=== PATIENT | female | born 1995 | race Caucasian/White ===

== ENCOUNTER 2023-03-26 17:37 | Emergency (ER) | payer MEDICAID, SELFPAY ==
[2023-03-26 17:46] VITALS: BP 152/105; PULSE 113; RESP 18; TEMP 36.7; O2SAT 99
--- NOTE | 2023-03-26 17:56 | ED.ANIMALBIT ---
HPI - Animal Bite General Chief Complaint: Animal Bite Stated Complaint: Cat bite L hand Time Seen by Provider: 03/26/23 17:41 History of Present Illness HPI narrative: This 28-year-old female comes in with a cat bite to her left hand that occurred yesterday. She states that the cat is up-to-date on vaccinations as is the case also for her personally. She has some swelling on the dorsal aspect of her left hand and a small puncture wound in the center aspect of the left hand dorsally. She does not report any fevers. Related Data Previous Rx's Medication Instructions Recorded amoxicillin 875 mg-potassium 1 tab PO BID #14 tabs 03/26/23 clavulanate 125 mg tablet Allergies Allergy/AdvReac Type Severity Reaction Status Date / Time No Known Drug Allergies Allergy Verified 03/26/23 17:45 Review of Systems Status of ROS: Reports: 10 or more systems reviewed and unremarkable except as noted in History and below Narrative: Constitutional: No fevers, no weight gain or loss. Eyes: No discharge. No vision changes. HENT: No congestion, no sore throat, no ear pain. Cardiovascular: No chest pain, no palpitations. Respiratory: No shortness of breath, no wheezes, no cough. Gastrointestinal: No abdominal pain, no vomiting, no diarrhea. Genitourinary: No dysuria, no hematuria. Musculoskeletal: Normal range of motion. Skin: No rashes, no pruritis. Erythema surrounding a puncture wound on the dorsal aspect of the left hand. Neurological: No dizziness, weakness, sensory change, speech change. Endo/Heme/Allergies: No bruising or bleeding. No polydipsia. Pysch: no suicidality, no anxiety, no insomnia. All other systems reviewed and are negative. PFSH PFS Social History Smoking Status: Current every day smoker How often do you have a drink containing alcohol: 2-4 times a month How many standard drinks containing alcohol do you have on a typical day: 1 or 2 How often do you have six or more drinks on one occasion: Weekly AUDIT-C Alcohol total score: 5 Non-prescribed substance use: marijuana (any form) service: No Exam Narrative: Exam Narrative: Constitutional: Well-developed, well-nourished, no acute distress. HEENT: Normocephalic, atraumatic. Neck: Normal range of motion. Nontender. Supple. Heart: Intact distal pulses. Lungs: No chest discomfort. No wheezes, rhonchi, or rales. Abdomen: Nontender. Back: Normal range of motion. Extremities: Normal range of motion. A single puncture wound is noted on the dorsal aspect of left hand. There is surrounding erythema extending to the MP joints and proximally to the wrist. There is some mild swelling also in this area. Skin: Intact. No rash. Warm. No erythema or pallor. Neurologic: No altered sensation. No weakness. Alert and oriented. Psychiatric: No suicidality. No anxiety or depression. No insomnia. Nursing notes and vitals signs are reviewed. Const: Vital Signs, click to edit/add: Vital Signs - 24 hr 03/26/23 17:46 Temperature 98.0 F Pulse Rate [Right Pulse Oximeter] 113 H Respiratory Rate 18 Blood Pressure [Ri ght Upper Arm] 152/105 H Pulse Oximetry 99 Oxygen Delivery Me thod Room Air Course Vital Signs Vital signs: Initial Vital Signs Temperature 98.0 F 03/26/23 17:46 Temperature Source Temporal Artery Scan 03/26/23 17:46 Pulse Rate 113 H 03/26/23 17:46 Respiratory Rate 18 03/26/23 17:46 Blood Pressure 152/105 H 03/26/23 17:46 Blood Pressure Mean 120 H 03/26/23 17:46 Blood Pressure Position Sitting 03/26/23 17:46 Pulse Oximetry 99 03/26/23 17:46 Oxygen Delivery Method Room Air 03/26/23 17:46 Vital Signs Temperature 98.0 F 03/26/23 17:46 Pulse Rate 113 H 03/26/23 17:46 Respiratory Rate 18 03/26/23 17:46 Blood Pressure 152/105 H 03/26/23 17:46 Pulse Oximetry 99 03/26/23 17:46 Oxygen Delivery Method Room Air 03/26/23 17:46 Temperature 98.0 F 03/26/23 17:46 Pulse Rate 113 H 03/26/23 17:46 Respiratory Rate 18 03/26/23 17:46 Blood Pressure 152/105 H 03/26/23 17:46 Pulse Oximetry 99 03/26/23 17:46 Oxygen Delivery Method Room Air 03/26/23 17:46 MDM - Animal Bite MDM Narrative Medical decision making narrative: This patient comes in reporting a cat bite injury to her left hand. These have high risk for an infection and she is showing signs of such. She received a prescription for Augmentin. I did describe signs and symptoms that would indicate a need for return and re-evaluation if not improving or worsening. Discharge Plan Discharge Clinical Impression: Cat bite Patient Disposition: Home, Self-Care Condition: Stable Additional Instructions: Take Augmentin as prescribed. Use [id number] medicines also as needed and directed. Follow up with MD or return if worsening. Prescriptions: New amoxicillin-pot clavulanate 875-125 mg tablet 1 tab PO BID Qty: 14 0RF Stand Alone Forms: [employer] Info Instructions
== END 2023-03-26 18:15 | disposition home or self-care (01) ==
LOC: ED 18:11
PROVIDERS: Emergency Provider Emergency Medicine Emergency Medical Services
DX: S61.452A Open bite of left hand, initial encounter (principal); W55.01XA Bitten by cat, initial encounter
CPT/HCPCS: 99283; 99284

== ENCOUNTER 2024-05-27 19:46 | Emergency (ER) | payer SELFPAY ==
[2024-05-27 20:07] VITALS: BP 110/76; PULSE 88; RESP 20; TEMP 36.8; O2SAT 99; BMI 219.9
[2024-05-27 20:33] LABS: Appearance Urine Clear (Clear); Bilirubin Urine Negative (Negative); Blood Urine Negative (Negative); Color Urine Yellow (Yellow); Glucose Urine Negative (Negative); Ketones Urine 2+ (Negative); Leukocyte Esterase Urine Trace (Negative); Nitrite Urine Negative (Negative); Protein Urine 1+ (Negative); Specific Gravity Urine 1.015 (1.000-1.030); Urobilinogen Urine 0.2 (0.2-1.0)
[2024-05-27 20:41] LABS: Ur HCG Qualitative* Negative (Negative)
[2024-05-27 20:50] LABS: Bacteria Urine Few; RBC Urine 0-2 (0-2); Trichomonas Urine Few
--- NOTE | 2024-05-27 21:44 | ED.BACK ---
HPI - Back Pain/Injury General Date Seen: 05/27/24 Chief Complaint: Back Injury/Pain Stated Complaint: back pain Time Seen by Provider: 05/27/24 20:47 Source: patient and RN notes reviewed Mode of arrival: ambulatory Limitations: no limitations History of Present Illness HPI Narrative: Patient is a very nice 29-year-old female presents here with back pain, and just feeling unwell for the last couple days, she has had no fevers or chills she has had no nausea vomiting, with this she has had her back pain was terrible yesterday but better today after she took some ibuprofen she does not have any numbness tingling or weakness associated with this, maybe a little bit of discharge, although she tells me it is not purulent, just a little bit more than normal. She has a little bit of frequency of urination but no dysuria associated with this. No history of immunosuppression, presents here with her significant other. Associated symptoms: increased urinary urgency and increased urinary frequency Work related injury: No Related Data Home Medications ?Medication ?Instructions ?Recorded ?Confirmed No Known Home Medications 05/27/24 05/27/24 Allergies Allergy/AdvReac Type Severity Reaction Status Date / Time No Known Drug Allergies Allergy Verified 05/27/24 20:09 Review of Systems Status of ROS: Reports: 10 or more systems reviewed and unremarkable except as noted in History and below [facility] Social History Smoking Status: Current every day smoker How often do you have a drink containing alcohol: 2-4 times a month How many standard drinks containing alcohol do you have on a typical day: 1 or 2 How often do you have six or more drinks on one occasion: Weekly AUDIT-C Alcohol total score: 5 Non-prescribed substance use: marijuana (any form) service: No Exam Narrative: Exam Narrative: On examination she is in no apparent distress she is pleasant alert she is able to follow my commands normally pupils equal round reactive to light there is no scleral icterus redness her TMs are normal oropharynx is normal her neck is supple full range of motion is elicited, her chest is clear bilaterally there is no CVA tenderness on examination or back she is able to bend over basically touch her toes her extension lateral flexion rotation are all normal her abdominal exam reveals no tenderness to palpation no masses no organomegaly bowel sounds are normal. Const: Vital Signs, click to edit/add: Vital Signs - 24 hr 05/27/24 20:07 Temperature 98.2 F Pulse Rate [Right Pulse Oximeter] 88 Respiratory Rate 20 Blood Pressure [Ri ght Upper Arm] 110/76 Pulse Oximetry 99 Oxygen Delivery Me thod Room Air Documenting provider has reviewed patient's vital signs: yes Course Course ED Course: They should I told her that her urinalysis was negative, I thought this was more just back spasm, given her history although that I would did go back and review her UA which showed 10-25 white blood cells I do think this is probably UTI early pyelo. Given her nontoxic nature, I would like her to use the ibuprofen and also Keflex which will cover for the most common which is E coli. 500 mg 4 times a day for the next 7 days is prescribed there through [facility] we went over signs symptoms of worsening, when she should re-presented, and she was comfortable with this left ambulatory from the emergency room Vital Signs Vital signs: Initial Vital Signs Temperature 98.2 F 05/27/24 20:07 Temperature Source Temporal Artery Scan 05/27/24 20:07 Pulse Rate 88 05/27/24 20:07 Respiratory Rate 20 05/27/24 20:07 Blood Pressure 110/76 05/27/24 20:07 Blood Pressure Mean 87 05/27/24 20:07 Blood Pressure Position Sitting 05/27/24 20:07 Pulse Oximetry 99 05/27/24 20:07 Oxygen Delivery Method Room Air 05/27/24 20:07 Vital Signs Temperature 98.2 F 05/27/24 20:07 Pulse Rate 88 05/27/24 20:07 Respiratory Rate 20 05/27/24 20:07 Blood Pressure 110/76 05/27/24 20:07 Pulse Oximetry 99 05/27/24 20:07 Oxygen Delivery Method Room Air 05/27/24 20:07 Temperature 98.2 F 05/27/24 20:07 Pulse Rate 88 05/27/24 20:07 Respiratory Rate 20 05/27/24 20:07 Blood Pressure 110/76 05/27/24 20:07 Pulse Oximetry 99 05/27/24 20:07 Oxygen Delivery Method Room Air 05/27/24 20:07 MDM - Back Pain/Injury MDM Narrative Medical decision making narrative: Life-threatening differential diagnosis considered include: Cauda equina an epidural abscess, other differential diagnosis considered includes sprain, contusion, nerve root entrapment, radiculopathy, muscle spasm, urolithiasis, lumbar fracture, pyelonephritis, appendicitis, biliary colic, as well as other etiologies. The patient denies saddle anesthesia bowel or bladder incontinence or lower extremity weakness, recent weight loss, or history of malignancy. Differential Diagnosis Differential diagnosis: Likely lumbar radiculopathy, sciatica, strain of lumbar region, renal colic, pyelonephritis, thoracic back pain and discitis Medical Records Attestation: I reviewed the patient's medical records. Lab Data Attestation: I reviewed the patient's lab results. Labs: Lab Results 05/27/24 Range/Units 20:29 Urine Color Yellow (Yellow) Urine Appearance Clear (Clear) Urine pH 6.0 (5.0-8.5) Ur Specific [place] 1.015 (1.000-1.030) Urine Protein 1+ A (Negative) Urine Glucose (UA) Negative (Negative) Urine Ketones 2+ A (Negative) Urine Blood Negative (Negative) Urine Nitrite Negative (Negative) Urine Bilirubin Negative (Negative) Urine Urobilinogen 0.2 (0.2-1.0) Ur Leukocyte Esterase Trace A (Negative) Urine RBC 0-2 (0-2) Urine WBC 10-25 A (0-5) Ur Squamous Epith Cells None (None-Few) Urine Bacteria Few A (None) Urine Trichomonas Few A (None) Urine HCG, Qual Negative (Negative) Evidence of UTI is noted. Discharge Plan Discharge Clinical Impression: UTI (urinary tract infection) Patient Disposition: Home w/ Parent or Adult Condition: Stable Instructions: Urinary Tract Infection in Women (DC) Additional Instructions: Home, rest, antibiotics as directed, increasing pain, fevers chills, nausea vomiting then he should come back and this is gone on to become a kidney infection, which we are not seeing here today. Ibuprofen 800 mg 3 times a day is also helpful. Activity Level: Light activity Prescriptions: No Action No Known Home Medications Follow Up/Referrals: Provider,Not a Local [Primary Care Provider] - Stand Alone Forms: [employer] Info Instructions
== END 2024-05-27 21:24 | disposition home or self-care (01) ==
LOC: ED 21:19
PROVIDERS: Emergency Provider Family Medicine
DX: N39.0 Urinary tract infection, site not specified (principal)
CPT/HCPCS: 81001; 81025; 87086; 87631; 99282; 99283; 99284

== ENCOUNTER 2024-06-03 05:01 | Emergency (ER) | payer SELFPAY ==
[2024-06-03 05:05] VITALS: BP 144/91; PULSE 87; RESP 18; TEMP 36.3; O2SAT 100; BMI 21.9
--- NOTE | 2024-06-03 05:28 | ED_ITS ---
HPI - General Adult General Date Seen: 06/03/24 Chief complaint: Back Injury/Pain Stated complaint: back pain Time Seen by Provider: 06/03/24 05:28 History of Present Illness HPI narrative: 29-year-old female presents to the ER today with back pain. History is limited by patient's stress and pain Per medical record she was seen 1 week ago on 05/27 in the ER by Dr. Rdz for back pain and feeling unwell. She has had some urinary frequency but no dysuria. Urine culture grew mixed charlie. She was given [facility] prescription for cephalexin 500 mg t.i.d. for 7 days. Apparently came in 2 bottles and she has been taking it this week, but still has 1 bottle left. It sounds like she may have missed a couple of doses of she still has a bottle of pills left, but it is unclear if she has been taking the cephalexin exactly as prescribed. She notes that her UTI symptoms have gotten better this week but she still has ongoing back pain. Her back pain affects her entire low back including both flanks from the ribs all the way down to the top of her pelvis. It does not radiate to the front. Has been getting worse for the past couple of days. She had gotten a prescription or had received instruction from her last ER doctor to take ibuprofen 800 mg for her back pain but she did not have any 100 mg tablet so has not been taking any ibuprofen. Her back pain has gotten worse the past couple of days. Tonight it is even worse. She can not sleep. She now says she is starting to ?freak out? because her back is hurting so much in she is tired of it hurting so she came back to the ER. She is not vomiting but she has been nauseous. Urination has been back to normal. She started getting her menstrual cycle a couple of days ago. When she was here last week she had mentioned that she had not gotten so she had a test (that was negative). She has a past medical history of a previous kidney stone and a previous ectopic surgery 9 years ago Related Data Previous Rx's ?Medication ?Instructions ?Recorded hydrocodone 5 mg-acetaminophen 325 1 - 2 tab PO Q6H PRN pain #10 tabs 06/03/24 mg tablet ibuprofen 800 mg tablet 800 mg PO Q8H PRN pain #10 tabs 06/03/24 Allergies Allergy/AdvReac Type Severity Reaction Status Date / Time No Known Drug Allergies Allergy Verified 05/27/24 20:09 [facility] Social History Smoking Status: Current every day smoker How often do you have a drink containing alcohol: 2-4 times a month How many standard drinks containing alcohol do you have on a typical day: 1 or 2 How often do you have six or more drinks on one occasion: Weekly AUDIT-C Alcohol total score: 5 Non-prescribed substance use: marijuana (any form) service: No Exam Narrative: Exam Narrative: Constitutional: Appears well-developed and well-nourished. Boyfriend attentively at her side. Patient is shaking and shivering due to pain/anxiety. She is tremulous and groaning. HENT: Head: Atraumatic. Nose: Nose normal. Mouth/Throat: Oral mucosa is clear and moist. no trismus. Pharynx normal Eyes: Conjunctivae normal. EOM normal. Pupils equal, round, and reactive to light. No scleral icterus. Neck: Normal range of motion. Neck supple. No tracheal deviation present. Cardiovascular: Normal rate, regular rhythm. No gallop. No friction rub. No murmur heard. Symmetric radial artery pulses Pulmonary/Chest: Effort normal. No stridor. No respiratory distress. No wheezes. No rales. No rhonchi . No tenderness. Abdominal: Soft. Bowel sounds normal. No distension. No mass. No tenderness. No rebound. No guarding. Musculoskeletal: Complains of diffuse lower back pain. She is tender over both flanks and in the midline. No step-off. No bruising. No rash. RUE: Normal range of motion. No tenderness. No deformity LUE: Normal range of motion. No tenderness. No deformity RLE: Normal range of motion. No edema. No tenderness. No deformity LLE: Normal range of motion. No edema. No tenderness. No deformity Neurological: Alert and oriented to person, place, and time. Normal strength. CN II-VII intact. No sensory deficit. GCS eye subscore is 4. GCS verbal subscore is 5. GCS motor subscore is 6. Normal coordination Skin: Skin is warm and dry. No rash noted. No pallor. Normal capillary refill. Psychiatric: Limited by pain and discomfort. Anxious due to her pain and distress. Const: Vital Signs, click to edit/add: Vital Signs - 24 hr 06/03/24 05:05 06/03/24 06:24 Temperature 97.3 F L Pulse Rate 68 Pulse Rate [Right Pulse Oximeter] 87 Respiratory Rate 18 Blood Pressure [Ri ght Upper Arm] 144/91 H Pulse Oximetry 100 100 Oxygen Delivery Me thod Room Air Course Course ED Course: Recheck-still having some pain but much improved after Dilaudid and Toradol. Able to rest more comfortably. Reevaluation(s) Reevaluation #1: Recheck-discussed lab and CT results with the patient and her boyfriend. They were comfortable discharging home with oral pain meds. Vital Signs Vital signs: Initial Vital Signs Temperature 97.3 F L 06/03/24 05:05 Temperature Source Temporal Artery Scan 06/03/24 05:05 Pulse Rate 87 06/03/24 05:05 Pulse Rhythm Regular 06/03/24 05:05 Respiratory Rate 18 06/03/24 05:05 Blood Pressure 144/91 H 06/03/24 05:05 Blood Pressure Mean 108 H 06/03/24 05:05 Blood Pressure Position Sitting 06/03/24 05:05 Pulse Oximetry 100 06/03/24 05:05 Oxygen Delivery Method Room Air 06/03/24 05:05 Vital Signs Temperature 97.3 F L 06/03/24 05:05 Pulse Rate 87 06/03/24 05:05 Respiratory Rate 18 06/03/24 05:05 Blood Pressure 144/91 H 06/03/24 05:05 Pulse Oximetry 100 06/03/24 05:05 Oxygen Delivery Method Room Air 06/03/24 05:05 Temperature 97.3 F L 06/03/24 05:05 Pulse Rate 68 06/03/24 06:24 Respiratory Rate 18 06/03/24 05:05 Blood Pressure 144/91 H 06/03/24 05:05 Pulse Oximetry 100 06/03/24 06:24 Oxygen Delivery Method Room Air 06/03/24 05:05 Medications Administered Medications: Discontinued Medications Generic Name Dose Route Start Last Admin Trade Name Freq PRN Reason Stop Dose Admin Hydromorphone HCl 0.5 mg 06/03/24 05:47 06/03/24 06:04 Hydromorphone 0.5 Mg/0.5 Ml Inj IVP 0.5 mg Q1H PRN Administration Pain Ketorolac Tromethamine 15 mg 06/03/24 05:47 06/03/24 06:04 Ketorolac 15 Mg/Ml Inj IVP 06/03/24 05:48 15 mg ONCE ONE Administration Ondansetron HCl 4 mg 06/03/24 05:47 06/03/24 06:04 Ondansetron 2 Mg/Ml Inj IVP 06/03/24 05:48 4 mg ONCE ONE Administration Medical Decision Making MDM Narrative Medical decision making narrative: Presented to the Emergency Department with low back pain affecting most of her low back including both of her flanks. She was here about 1 week ago with some urinary symptoms and is currently on cephalexin for UTI. First concern is for possible evolving pyelonephritis however without unilateral flank pain, that seems less likely. Repeat urinalysis today shows resolution of previous pyuria and no evidence for any ongoing infection or pyelonephritis. I did addictions counselor assistant the patient to complete her course of cephalexin. Differential would also include kidney stones. Urinalysis negative for hematuria. Stone protocol CT is negative for any kidney stone or hydronephrosis. Although she is not having any anterior abdominal pain, differential for her back pain but also include pancreatitis, cholecystitis, Appendicitis, Bowel Obstruction, Ulcer, Ischemia, Cholecystitis, Diverticulitis, Pancreatitis, UTI, kidney stone, Enteritis/Colitis, amongst many other etiologies. Laboratory testing does not reveal a cause for the patient's pain. Imaging is noted to be normal, save for a 3.5 cm cyst in her left adnexa which is probably a benign ovarian cyst. She is not having any pelvic pain or any symptoms lateralizing to left size to raise concern for torsion or TOA at this time. The exact etiology of the abdominal pain is not clear at this time. No life threatening cause or need for emergent surgery or hospital admission is detected today. The patient was advised that if symptoms do not completely resolve within another 12-24 hours re-evaluation with primary care or return to the ED is indicated. The patient also understands that if they worsen, they should return to the ER right away. I discussed the uncertainty about the diagnosis and answered the patient's questions. return precautions discussed. Prescriptions for [place] and ibuprofen. Opiate and sedation precautions reviewed. She will return for recheck in 24 hours of not improving, sooner if worse. Lab Data Labs: Lab Results 06/03/24 Range/Units 05:49 WBC 7.24 (4.50-11.00) K/uL RBC 4.18 (4.00-5.20) m/uL Hgb 13.3 (12.0-16.0) gm/dL Hct 40.2 (33.0-51.0) % MCV 96 (80-100) fL MCH 32 (26-34) pg MCHC 33 (32-36) gm/dL RDW Coeff of [place] 12.6 (11.5-15.5) % Plt Count 489 H (140-440) K/uL Neut % (Auto) 48.7 (42.0-72.0) % Lymph % (Auto) 38.1 (20-44) % [place] % (Auto) 10.4 (0.0-11.0) % Eos % (Auto) 1.8 (0.0-7.0) % Baso % (Auto) 0.3 (0.0-3.0) % Neut # (Auto) 3.53 (1.7-7.0) K/uL Lymph # (Auto) 2.76 (0.90-2.90) K/uL [place] # (Auto) 0.80 (0.00-0.90) K/UL Eos # (Auto) 0.13 (0.00-0.50) K/uL Baso # (Auto) 0.02 (0.00-0.30) K/uL Abs Immat Gran (auto) 0.05 (0.00-0.30) K/uL Imm/Tot Granulo (auto) 0.7 % Diff Slide Review Acceptable Review (Acceptable) Sodium 135 (135-149) mmol/L Potassium 3.4 L (3.6-5.1) mmol/L Chloride 99 (96-114) mmol/L Carbon Dioxide 27 (20-32) mmol/L Anion Gap 9 (7-15) mEq/L BUN 9 (5-24) mg/dL Creatinine 0.7 (0.5-1.5) mg/dL Estimated Creat Clear 113.24 Estimated GFR 119 ml/min Glucose 107 (60-115) mg/dL Calcium 9.2 (8.4-10.6) mg/dL Total Bilirubin 0.4 (0.1-1.5) mg/dL AST 42 H (12-35) U/L ALT 56 H (4-35) U/L Alkaline Phosphatase 100 (40-150) U/L Total Protein 7.4 (6.0-8.3) g/dL Albumin 4.0 (3.3-5.0) g/dL Lipase 55 (23-300) U/L HCG, Qual Negative (Negative) Urine Color Yellow (Yellow) Urine Appearance Clear (Clear) Urine pH 7.0 (5.0-8.5) Ur Specific [place] 1.010 (1.000-1.030) Urine Protein Negative (Negative) Urine Glucose (UA) Negative (Negative) Urine Ketones Negative (Negative) Urine Blood 3+ A (Negative) Urine Nitrite Negative (Negative) Urine Bilirubin Negative (Negative) Urine Urobilinogen 0.2 (0.2-1.0) Ur Leukocyte Esterase 1+ A (Negative) Urine RBC 0-2 (0-2) Urine WBC 2-5 (0-5) Ur Squamous Epith Cells Moderate A (None-Few) Urine Bacteria Few A (None) Imaging Data CT scan - abdomen: Attestation: I have reviewed the pertinent imaging results. Radiologist's impression: IMPRESSION: 1. Negative for hydronephrosis or nephrolithiasis. 2. Left adnexal cyst measuring up to 3.5 cm. Trace free fluid within the pelvis. Discharge Plan Discharge Clinical Impression: Low back pain, Ovarian cyst Instructions: Acute Low Back Pain (ED) Additional Instructions: As we discussed, the cause for your back pain is not clear at this time. We do not see any sign of a kidney stone or kidney infection. Your other laboratory work is reassuring. Your CT scan does show a cyst (a bubble of fluid) on her left ovary. I suspect that the cyst is probably not causing your back pain. Would like you to see your doctor within 1-2 months to have a pelvic ultrasound to recheck that left ovarian cyst and make sure it resolves. To manage her back pain, you can use ibuprofen 800 mg 3 times daily as needed. You can also use [place] every 6 hours as needed. Be careful with [place] because it can cause dizziness, drowsiness, constipation. [place], like all opiate pain killers, can be addictive. Please return to the ER or see your doctor if her back pain is not improving within 24 hours. As we discussed, if you get worse or have other concerning symptoms, please come back to the ER right away. Prescriptions: New hydrocodone-acetaminophen 5-325 mg tablet 1 - 2 tab PO Q6H PRN (Reason: pain) Qty: 10 0RF ibuprofen 800 mg tablet 800 mg PO Q8H PRN (Reason: pain) Qty: 10 0RF Follow Up/Referrals: Provider,Not a Local [Primary Care Provider] - Stand Alone Forms: [employer] Info Instructions
--- NOTE | 2024-06-03 05:47 | CRLHL7_ITS ---
For Patients: As a result of the Century Cures Act, medical imaging exams and procedure reports are released immediately into your electronic medical record. You may view this report before your referring provider. If you have questions, please contact your health care provider. INDICATION: Bilateral flank pain TECHNIQUE: CT abdomen and pelvis without contrast. COMPARISON: None. FINDINGS: The visualized portions of the lung bases are clear. Evaluation of the abdominal viscera is limited due to lack of IV contrast, however the liver, spleen, pancreas and adrenal glands are unremarkable. The gallbladder is nondistended. The kidneys are negative for hydronephrosis or nephrolithiasis. The bladder is distended and unremarkable. There is a 2.6 x 3.5 cm cyst in the left adnexa. Trace free fluid within the pelvis. There are no dilated loops of small bowel to suggest obstruction. The appendix is at the upper limits of normal in distension without wall thickening. No significant surrounding inflammatory change. There is no intraperitoneal free air or fluid. The visualized osseous structures are unremarkable. IMPRESSION: 1. Negative for hydronephrosis or nephrolithiasis. 2. Left adnexal cyst measuring up to 3.5 cm. Trace free fluid within the pelvis. Dictated by Radha Caal MD @ 06/03/2024 7:11:18 AM Please note that all CT scans at this facility use dose modulation, iterative reconstruction, and/or weight-based dosing when appropriate to reduce radiation dose to as low as reasonably achievable. Dictated by: Radha Caal MD @ 06/03/2024 07:13:48 (Electronically Signed)
[2024-06-03 05:59] LABS: Basophils Absolute Auto 0.02 K/uL (0.00-0.30); Basophils Percent Auto 0.3 % (0.0-3.0); Eosinophils Absolute Auto 0.13 K/uL (0.00-0.50); Eosinophils Percent Auto 1.8 % (0.0-7.0); Hematocrit 40.2 % (33.0-51.0); Hemoglobin* 13.3 gm/dL (12.0-16.0); Immature Granulocytes Abs Auto 0.05 K/uL (0.00-0.30); Immature Granulocytes Pct Auto 0.7 %; Lymphocytes Absolute Auto 2.76 K/uL (0.90-2.90); Lymphocytes Percent Auto 38.1 % (20-44); Mean Corpuscular HGB Conc 33 gm/dL (32-36); Mean Corpuscular Hemoglobin 32 pg (26-34); Mean Corpuscular Volume 96 fL (80-100); Monocytes Percent Auto 10.4 % (0.0-11.0); Neutrophils Absolute Auto 3.53 K/uL (1.7-7.0); Neutrophils Percent Auto 48.7 % (42.0-72.0); Platelet Count* 489 K/uL (140-440); RDW Coefficient of Variation % 12.6 % (11.5-15.5); Red Blood Count 4.18 m/uL (4.00-5.20); White Blood Count* 7.24 K/uL (4.50-11.00)
[2024-06-03 06:02] LABS: Appearance Urine Clear (Clear); Bilirubin Urine Negative (Negative); Blood Urine 3+ (Negative); Color Urine Yellow (Yellow); Glucose Urine Negative (Negative); Ketones Urine Negative (Negative); Leukocyte Esterase Urine 1+ (Negative); Nitrite Urine Negative (Negative); Protein Urine Negative (Negative); Urobilinogen Urine 0.2 (0.2-1.0)
[2024-06-03 06:03] LABS: Slide Review Reflex Yes
[2024-06-03] MEDS: KETOROLAC 15 MG/ML inj IVP (06:04)
[2024-06-03] MEDS: ONDANSETRON 2 MG/ML inj 4 MG IVP (06:04)
[2024-06-03] MEDS: HYDROmorphone 0.5 mg/0.5 ml inj IVP (06:04)
[2024-06-03 06:15] LABS: Chloride* 99 mmol/L (96-114); Potassium* 3.4 mmol/L (3.6-5.1); Sodium* 135 mmol/L (135-149)
[2024-06-03 06:17] LABS: Creatinine* 0.7 mg/dL (0.5-1.5); Est. Creatinine Clearance* 113.24; Estimated Glomerular Filt Rate 119 ml/min
[2024-06-03 06:18] LABS: Alanine Aminotransferase* 56 U/L (4-35); Alkaline Phosphatase* 100 U/L (40-150); Anion Gap 9 mEq/L (7-15); Aspartate Amino Transferase* 42 U/L (12-35); Bilirubin Total* 0.4 mg/dL (0.1-1.5); Blood Urea Nitrogen* 9 mg/dL (5-24); Calcium* 9.2 mg/dL (8.4-10.6); Carbon Dioxide* 27 mmol/L (20-32); Glucose* 107 mg/dL (60-115); Lipase* 55 U/L (23-300); Total Protein* 7.4 g/dL (6.0-8.3)
[2024-06-03 06:24] VITALS: PULSE 68; O2SAT 100
[2024-06-03 06:25] LABS: Bacteria Urine Few; RBC Urine 0-2 (0-2); Squamous Epithelial Cell Urine Moderate (None-Few)
[2024-06-03 06:31] LABS: HCG Qualitative Serum* Negative (Negative)
[2024-06-03 07:35] LABS: Slide Review Acceptable Review (Acceptable)
== END 2024-06-03 07:49 | disposition home or self-care (01) ==
PROVIDERS: Emergency Provider Emergency Medicine
DX: M54.50 Low back pain, unspecified (principal); N83.202 Unspecified ovarian cyst, left side
CPT/HCPCS: 36415; 74176; 80053; 81001; 83690; 84703; 85025; 87086; 96374; 96375; 99283; 99284; J1171; J1885; J2405

== ENCOUNTER 2024-07-20 17:36 | Emergency (ER) | payer SELFPAY ==
[2024-07-20 17:51] VITALS: BP 126/86; PULSE 109; RESP 16; TEMP 37.7; O2SAT 100; BMI 22.6
[2024-07-20] MEDS: MORPHINE 10 MG/ML inj IM (18:19)
--- NOTE | 2024-07-20 18:20 | ED_ITS ---
HPI - General Adult General Date Seen: 07/20/24 Chief complaint: Skin/Abscess/Foreign Body Stated complaint: R side swelling and painful, tooth concerns Time Seen by Provider: 07/20/24 17:58 Source: patient History of Present Illness HPI narrative: Patient is a 29-year-old woman here for evaluation of dental pain and facial swelling which started last night and has worsened throughout the day. She denies fevers, chills, nausea vomiting or other systemic symptoms. She does have poor dentition, she notes a history of significant drug use including heroin and meth and says her teeth have been a problem as a result. She does not go to the dentist often, she has anxiety around dentist and also says that payment is of a concern because she does not know she has any dental insurance. Related Data Home Medications ?Medication ?Instructions ?Recorded ?Confirmed No Known Home Medications 07/20/24 07/20/24 Allergies Allergy/AdvReac Type Severity Reaction Status Date / Time No Known Drug Allergies Allergy Verified 07/20/24 17:57 PFSH REPLACED BY [facility] Social History Smoking Status: Current every day smoker How often do you have a drink containing alcohol: 4 or more times a week How many standard drinks containing alcohol do you have on a typical day: 1 or 2 How often do you have six or more drinks on one occasion: Weekly AUDIT-C Alcohol total score: 7 Non-prescribed substance use: former substance user and marijuana (any form) service: No Exam Narrative: Exam Narrative: Vital signs reviewed. She is mildly tachycardic, temp is 99.9?. In general an alert, somewhat anxious woman. Nontoxic. Head: Normocephalic, atraumatic. Eyes: Sclera clear. ENT: She has some swelling along the jaw line and just underneath it, diffusely tender in this area. There is no significant erythema. Airways patent. Dentition is poor. Along the lateral gum line on the lower right she has an area of fluctuance. Neck: Supple, no stridor. No significant adenopathy. Heart: Regular rate and rhythm without murmur. Lungs: Clear. Skin: Warm and dry, well perfused. Const: Vital Signs, click to edit/add: Vital Signs - 24 hr 07/20/24 17:51 07/20/24 19:11 Temperature 99.9 F H Pulse Rate [Pulse Oximeter] 109 H 91 Respiratory Rate 16 Blood Pressure [Ri ght Upper Arm] 126/86 Pulse Oximetry 100 100 Oxygen Delivery Me thod Room Air Room Air Documenting provider has reviewed patient's vital signs: yes Course Course ED Course: Discussed with her how to proceed. Given her history of drug use, we did dis cuss pain management. She says that last time she was here she received a dose of narcotics and had concerns about how that would affect her, but she says it was fine. She would like something for pain prior to trying to anesthetize her mouth. I did recommend to her that we try to drain that area where I feel fluctuance. She will need antibiotics and stressed the need for dental follow- up as well. Procedure note: The area over lying maximal tenderness and with slight fluctuance was anesthetized using lidocaine with epinephrine. I then used an 18 gauge needle to pass into that area twice, I did not find any pus using the needle so I elected not to make an incision. She tolerated this well, no immediate complication. Advised her that she may still have a small developing abscess. Will start her on Augmentin, if she worsens rather than improves she should come back. Discussed that she needs tomorrow to find a dental clinic for follow-up next week. Return at any time for significant worsening facial swelling, fevers, chills, vomiting or other systemic symptoms. Ibuprofen and Tylenol 3 times daily as needed for pain. Vital Signs Vital signs: Initial Vital Signs Temperature 99.9 F H 07/20/24 17:51 Temperature Source Temporal Artery Scan 07/20/24 17:51 Pulse Rate 109 H 07/20/24 17:51 Respiratory Rate 16 07/20/24 17:51 Blood Pressure 126/86 07/20/24 17:51 Blood Pressure Mean 99 07/20/24 17:51 Blood Pressure Position Sitting 07/20/24 17:51 Pulse Oximetry 100 07/20/24 17:51 Oxygen Delivery Method Room Air 07/20/24 17:51 Vital Signs Temperature 99.9 F H 07/20/24 17:51 Pulse Rate 109 H 07/20/24 17:51 Respiratory Rate 16 07/20/24 17:51 Blood Pressure 126/86 07/20/24 17:51 Pulse Oximetry 100 07/20/24 17:51 Oxygen Delivery Method Room Air 07/20/24 17:51 Temperature 99.9 F H 07/20/24 17:51 Pulse Rate 91 07/20/24 19:11 Respiratory Rate 16 07/20/24 17:51 Blood Pressure 126/86 07/20/24 17:51 Pulse Oximetry 100 07/20/24 19:11 Oxygen Delivery Method Room Air 07/20/24 19:11 Medications Administered Medications: Discontinued Medications Generic Name Dose Route Start Last Admin Trade Name Rommel PRN Reason Stop Dose Admin Morphine Sulfate 10 mg 07/20/24 18:09 07/20/24 18:19 Morphine 10 Mg/Ml Inj IM 07/20/24 18:10 10 mg ONCE ONE Administration Discharge Plan Discharge Clinical Impression: Dental infection Patient Disposition: Home, Self-Care Condition: Stable Instructions: Dental Abscess (ED) Additional Instructions: Take Augmentin as prescribed. I would like you to find a dental clinic tomorrow that you can follow-up with next week. You will need a dentist to intervene with this tooth. If in the interim, you develop worsening swelling, fevers, chills, vomiting or other signs of systemic illness, return for re-evaluation. Tylenol 1000 mg plus ibuprofen 400 mg 3 times daily as needed for pain. Prescriptions: No Action No Known Home Medications Follow Up/Referrals: Provider,Not a Local [Primary Care Provider] - Stand Alone Forms: MyHealth Info Instructions
[2024-07-20 19:11] VITALS: PULSE 91; O2SAT 100
== END 2024-07-20 19:15 | disposition home or self-care (01) ==
PROVIDERS: Emergency Provider Emergency Medicine
DX: K04.7 Periapical abscess without sinus (principal)
CPT/HCPCS: 96372; 99283; 99284; J2270